=== PATIENT | male | born 1985 | race Asian ===

== ENCOUNTER 2019-12-08 18:32 | Emergency (ER) | payer SELFPAY ==
[~2019-12-08] VITALS: Ht 190.5 cm; Wt 81.6 kg
[2019-12-08 18:45] VITALS: BP 110/66
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
--- NOTE | 2019-12-08 18:55 | NUR ---
ED Nurse Note: Pt in radiology
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
--- NOTE | 2019-12-08 19:22 | NUR ---
ED Nurse Note: Report given to STALIN Gaines. Pt in stable condition; plan of care endorsed.
[2019-12-08] MEDS ORDERED: IBUPROFEN600 MG ORAL (19:24)
[2019-12-08 19:30] VITALS: BP 110/66
--- NOTE | 2019-12-08 19:30 | NUR ---
ED Nurse Note: Pt cleared by health care Provider for discharge. DC instructions/prescription was given and explained to pt and verbalized understanding of teachings. All medical deviecs such as ID band removed. Pt is AAO x4, ambulatory and left with all personal belongings.
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
== END 2019-12-08 19:30 | disposition home or self-care (01) ==
LOC: EMR 19:20
DX: S40.021A Contusion of right upper arm, initial encounter (principal); V03.90XA Pedestrian on foot injured in collision with car, pick-up truck or van, unspecified whether traffic or nontraffic accident, initial encounter; Y92.481 Parking lot as the place of occurrence of the external cause
CPT/HCPCS: 99283